=== PATIENT | female | born 1930 | race Caucasian/White ===

== ENCOUNTER → 2018-09-17 | Outpatient (CLI) | payer MEDICARE ==
[2018-09-17 09:58] LABS: HEMATOCRIT 40.4 % (36.0-47.0); HEMOGLOBIN 13.4 g/dl (12.0-15.5); MEAN CORPUSCULAR HEMOGLOBIN 29.4 pg (27.0-33.0); MEAN CORPUSCULAR HGB CONC 33.2 g/dl (32.0-36.5); MEAN CORPUSCULAR VOLUME 88.6 fl (80.0-96.0); PLATELET COUNT, AUTOMATED 233 10^3/uL (150-450); RED BLOOD COUNT 4.56 10^6/uL (4.00-5.40); RED CELL DISTRIBUTION WIDTH 13.5 % (11.5-14.5); WHITE BLOOD COUNT 7.8 10^3/uL (4.0-10.0)
[2018-09-17 10:12] LABS: INR 1.04; PROTHROMBIN TIME 13.7 SECONDS (12.1-14.4)
[2018-09-17 10:17] LABS: ALBUMIN 3.9 GM/DL (3.2-5.2); ALBUMIN/GLOBULIN RATIO 1.39 (1.00-1.93); ALKALINE PHOSPHATASE 86 U/L (45-117); ALT/SGPT 26 U/L (12-78); ANION GAP 6 MEQ/L (8-16); AST/SGOT 30 U/L (7-37); BILIRUBIN,TOTAL 0.3 MG/DL (0.2-1.0); BLOOD UREA NITROGEN 21 MG/DL (7-18); CALCIUM LEVEL 9.6 MG/DL (8.8-10.2); CARBON DIOXIDE LEVEL 33 MEQ/L (21-32); CHLORIDE LEVEL 101 MEQ/L (98-107); GLOMERULAR FILTRATION RATE > 60.0 (>32); GLUCOSE, FASTING 177 MG/DL (70-100); POTASSIUM SERUM 4.3 MEQ/L (3.5-5.1); SODIUM LEVEL 140 MEQ/L (136-145); TOTAL PROTEIN 6.7 GM/DL (6.4-8.2)
[2018-09-17 15:14] LABS: ERYTHROCYTE SEDIMENTATION RATE 10 mm/hr (0-42)
== END ==
LOC: M LAB 09:03
DX: Z01.818 Encounter for other preprocedural examination (principal); R00.1 Bradycardia, unspecified; E11.9 Type 2 diabetes mellitus without complications; K21.9 Gastro-esophageal reflux disease without esophagitis; H40.9 Unspecified glaucoma; Z87.440 Personal history of urinary (tract) infections; M25.551 Pain in right hip
CPT/HCPCS: 71046

== ENCOUNTER 2018-11-10 13:32 | Inpatient (IN) | payer MEDICARE, MEDICAID ==
--- NOTE | 2018-11-03 18:19 | HPE ---
DATE OF SCHEDULED ADMISSION: 11/10/2018 ATTENDING: Dr. Kim CHIEF COMPLAINT: Right hip pain and stiffness. HISTORY: This is a pleasant 88-year-old female patient with progressively worsening right hip pain and stiffness. She was originally scheduled for 10/01/2018, and her surgery was cancelled due to a urinary tract infection. She has since been treated for a urinary tract infection and has an updated clearance done on 10/22/[address] Acevedo's office. She continues to have troubles with normal day-to-day activities. She has troubles getting dressed, weightbearing activities. She continues to have pain with normal day-to-day activities. She has elected for surgery for continued symptoms. She was consented by Dr. Kim for a right total hip arthroplasty. X-rays notable for end-stage degenerative changes of the right hip. CURRENT MEDICATIONS: - amlodipine 5 mg one tablet twice a day - aspirin 81 mg once per day; she will discontinue that 5 days prior to surgery. - brimonidine 0.2% solution, use as directed - Colace 100 mg one tablet once per day - dorzolamide 22.3-6.8 mg, use as directed - duloxetine 60 mg, one tablet once per day - glimepiride 1 mg, half tablet once per day - Glucophage extended release 500 mg, two tablets once per day - irbesartan/hydrochlorothiazide 150/12.5 mg, one tablet once per day - levothyroxine 112 mcg, one tablet once per day - Nexium 40 mg, one tablet once per day - Zantac 150 mg, one tablet at bedtime - rosuvastatin 20 mg, one tablet once per day - tramadol 50 mg as needed for pain - Travatan solution 0.004%, use as directed - trazodone 50 mg, one tablet at bedtime as needed She knows to bring her eye drops with her to the hospital and to discontinue aspirin 5 days prior to surgery. ALLERGIES: MORPHINE, CIPROFLOXACIN, DILAUDID, BACTRIM and GABAPENTIN. MEDICAL CONDITIONS: Include symptomatic osteoarthritis of the right hip, diabetes type 2, gastric reflux disease, elevated triglycerides, colon polyps, glaucoma, elevated lipids, hypertension, hypothyroidism, depression, sciatica, spinal stenosis. PAST SURGICAL HISTORY: Left cataract removed. She has had her tonsils removed, hysterectomy, she has also had a laminectomy in 1995 and posterolateral fusion in 2003. SOCIAL HISTORY: She does not use alcohol. She is a retired gannon. She does not smoke. FAMILY HISTORY: Noncontributory. REVIEW OF SYSTEMS: Denies fever or chills. Denies chest pain, shortness breath or cough. Denies difficulty breathing. Denies abdominal pain. Denies nausea or vomiting. Notes persistent pain in her right hip with activities of daily living and weightbearing activities. She denies recent upper respiratory infection (URI) symptoms. She did have a urinary tract infection in September; it was treated, see the history of the present illness. Physical exam today reveals alert, well-nourished, well-developed female patient. She ambulates with the use of a walker. Exam of the right hip does reveal the skin to be intact. No erythema, edema or ecchymosis. There is decreased internal-external rotation of the right hip. The calf is soft, nontender to palpation. She can sensate light touch in the right lower extremity. Neck is supple without adenopathy or jugular venous distention (JVD). Lungs are clear to auscultation without rales or wheeze. Heart: Regular rate and rhythm. Abdomen: Bowel sounds are present. Her most current vital signs: Height 5 feet even, weight 177 pounds, temperature 96.5, blood pressure 140/80, pulse 78, respirations 16, temperature 98.6, body mass index (BMI) of 26. X-ray: No acute cardiopulmonary disease process noted. EKG: Bradycardia. IMPRESSION: Symptomatic osteoarthritis to right hip. PLAN: She has consented for a right total hip arthroplasty by Dr. Kim. LAUREN
[~2018-11-10] VITALS: Ht 154.9 cm; Wt 60.8 kg
[~2018-11-10 13:32] MED LIST: ACID1CAP5 PO; ACID1TAB PO; AMAR1TAB PO; AMLO5TAB6 PO; ASPI1CHW2 PO; BRIM1OPD OP; CRES20TA PO; DORZ2SOL5 OD; DULO1CAP3 PO; ESOM1CAP5 PO; FENO160T10 PO; HM C500T3 PO; IRBE150T14 PO; IRON27TA2 PO; LR 1,000 ML IV ONE; METF500T4 PO; MULTCAP PO; RANI1TAB6 PO; SENN-23 PO; SIMV40TA2 PO; SYNT100T PO; TRAM50TA2 PO; TRAV04OPD OU; TRAZ-160 PO
[2018-11-10] MEDS ORDERED: TRANEXAMIC ACID 100 MG/ML 10ML VIAL As Ordered ONE (13:47)
[2018-11-10] MEDS ORDERED: EPINEPHrine INJ 1 MG/ML 1ML AMP As Ordered ONE (13:48)
[2018-11-10] MEDS ORDERED: BUPIVACAINE LIPOSOME/PF 1.3% 20ML VIAL (13.3MG/ML)(EXPAREL)(C9290 PER1MG) As Ordered ONE (13:48)
[2018-11-10] MEDS ORDERED: BUPIVACAINE HCL 0.5% 10 ML VIAL As Ordered ONE (13:48)
[2018-11-10] MEDS ORDERED: PERCOCET 5MG/325MG TAB As Ordered ONE (14:30)
[2018-11-10] MEDS ORDERED: ceFAZolin 2 GM/D5W 50 ML IV BAG (J0690 PER 500MG) As Ordered ONE (14:30)
[2018-11-10] MEDS ORDERED: PERCOCET 5MG/325MG TAB PO ONE (14:45)
[2018-11-10] MEDS ORDERED: CelecoXIB (CeleBREX) 100 MG CAP PO ONE (14:45)
[2018-11-10] MEDS ORDERED: BUPIVACAINE/EPIN 0.25% 30 ML VIAL As Ordered ONE (15:09)
[2018-11-10] MEDS: ceFAZolin 1GM INJ (J0690 PER 500MG) As Ordered ONE ×2 (15:45→16:23)
[2018-11-10] MEDS ORDERED: fentaNYL 100 MCG/2 ML INJECTION (J3010) As Ordered ONE (15:56)
[2018-11-10] MEDS ORDERED: MIDAZOLAM INJ 2 MG/2 ML VIAL (J2250) As Ordered ONE (15:56)
[2018-11-10] MEDS ORDERED: BUPIVACAINE/DEXTROSE 0.75% 2 ML AMP As Ordered ONE (15:56)
[2018-11-10] MEDS ORDERED: LIDOCAINE 2% INJ 100 MG/5 ML SDV (FOR ANES.) As Ordered ONE (15:56)
[2018-11-10] MEDS ORDERED: PROPOFOL 200 MG/20 ML VIAL As Ordered ONE (16:06)
[2018-11-10] MEDS ORDERED: ePHEDrine SULFATE 25 MG/5 ML(5MG/ML) SYRINGE As Ordered ONE (16:40)
[2018-11-10] MEDS ORDERED: FLEET ENEMA PR PRN (18:15)
[2018-11-10] MEDS ORDERED: ONDANSETRON 4MG/2ML VIAL (J2405) IV PRN ×2 (18:15→18:30)
[2018-11-10] MEDS ORDERED: D5W/LR 1,000 ML IV SCH (18:15)
[2018-11-10] MEDS: fentaNYL 100 MCG/2 ML INJECTION (J3010) IV PRN ×4 (18:25→18:45)
[2018-11-10] MEDS ORDERED: LR 1,000 ML IV SCH (18:30)
[2018-11-10] MEDS ORDERED: MORPHINE 10 MG/ML 1ML VIAL (J2270) IV PRN (18:30)
[2018-11-10] MEDS: PERCOCET 5MG/325MG TAB PO PRN ×2 (18:40→19:03)
[2018-11-10 19:50] VITALS: BP 143/74
--- NOTE | 2018-11-10 20:18 | CR.PDOC ---
General Date of Consultation: Nov 10, 2018 Consultation PRIMARY CARE PROVIDER: Dr. Acevdeo ATTENDING: Dr. Kim Reason for consultation medical comanagement HISTORY OF PRESENT ILLNESS: This is a 88-year-old female past medical history of ulcer arthritis, GERD, colon polyps, glaucoma, hypertension, hyperthyroidism, depression, spinal st enosis of presents for right hip arthroplasty for symptomatic osteoarthritis. We have been consulted for medical comanagement. Patient denies any chest pain/shortness of breath/palpitations. No nausea vomiting or abdominal pain. Denies any complaints at this time. PAST MEDICAL HISTORY: As per HPI PAST SURGICAL HISTORY: Laminectomy, cataract surgery. SOCIAL HISTORY: Denies tobacco, alcohol use. FAMILY HISTORY: Noncontributory. ALLERGIES: Please see below. REVIEW OF SYSTEMS: HEENT: Denies sore throat/headache CARDIOVASCULAR: Denies chest pain/palpitations RESPIRATORY: Denies shortness of breath/cough GASTROINTESTINAL: denies nausea/vomiting GENITOURINARY: Denies dysuria/urinary urgency. MUSCULOSKELETAL: Denies myalgias/arthralgias NEUROLOGICAL: Denies any focal weakness HOME MEDICATIONS: Please see below. PHYSICAL EXAMINATION: Vitals: (see below) General: No acute distress, laying comfortably in bed. HEENT: Moist mucous membranes. Neck: No JVD or lymphadenopathy Cardiac: RRR, No murmurs Pulm: Clear to auscultation b/l. No wheezing, rhonchi Abd: NT/ND + BS Ext: No edema or cyanosis. Right hip with incision clean and dry. No bleeding at this time. Distal pulses intact. Capillary refill less than 2 seconds. LABORATORY DATA: See below. ASSESSMENT/PLAN: 1. Postop day #0 status post right total hip. Management per orthopedics. Pain management per orthopedic. 2. History of hypertension - - restart amlodipine, Irbesartan. Hold hydrochlorothiazide for now. 3. History of GERD on PPI 4. History of depression will need outpatient follow-up 5. Diabetes mellitus - Hold PO meds. SSI. 6. History of colon polyps will need outpatient follow-up. 7. History of glaucoma will need outpatient follow-up. DVT prophylaxis per orthopedics. Vital Signs/I&O Vital Signs Date Time Temp Pulse Resp B/P (MAP) Pulse Ox O2 Delivery O2 Flow Rate FiO2 11/10/18 19:25 97.6 62 18 156/75 (102) 99 Nasal Cannula 2 Laboratory Data CBC/BMP Laboratory Tests 11/10/18 13:58 Allergies Coded Allergies: Morphine (Verified Adverse Reaction, Severe, HALLUCINATIONS, 10/31/18) Ciprofloxacin (Verified Adverse Reaction, Unknown, 10/31/18) Gabapentin (Verified Adverse Reaction, Unknown, UNSTEADY, 10/31/18) Hydromorphone (Verified Adverse Reaction, Unknown, UNSTEADY, 10/31/18) Pregabalin (Verified Adverse Reaction, Unknown, UNSTEADY, 10/31/18) Sulfamethoxazole w/Trimethoprim (Verified Adverse Reaction, Unknown, GI UPSET, 10/31/18) Home Medications Scheduled (Multivitamins) 1 Cap Cap, 1 CAP PO DAILY, (Reported) (Iron) 27 Mg Tab, 27 MG PO DAILY, (Reported) (Dorzolamide HCl/Timolol M 22.3-6.8 mg/ml) 1 [place], 1 DROP OD BID, #10 (Reported) (Esomeprazole Magnesium) 40 Mg Cap, 0.5 TAB PO DAILY, (Reported) (Irbesartan/Hydrochlorothi 150-12.5 mg) 1 Tab Tab, 1 TAB PO DAILY, (Reported) Acetaminophen (Acetaminophen Extra Stren) 500 Mg Tab, 1 TAB PO Q6H for fever for 15 Days, #60 Amlodipine Besylate (Amlodipine Besylate) 5 Mg Tab, 5 MG PO BID, (Reported) Brimonidine Tartrate 0.1% (Alphagan P) 100 Drop/5 Ml Soln, 1 DROP OP BID for 30 Days, #5 (Reported) Cranberry (Hm Cranberry Ultra Streng) 500 Mg Tab, 500 MG PO DAILY, (Reported) Duloxetine Hcl (Duloxetine HCl) 60 Mg Cap, 60 MG PO DAILY, (Reported) Glimepiride (Amaryl) 1 Mg Tab, 0.5 TAB PO DAILY, (Reported) Lactobacillus (Acidophilus Probiotic For) 1 Tab Tab, 0.5 TAB PO 2XWK, (Reported) TAKES ON MONDAYS AND FRIDAYS Levothyroxine Sodium (Synthroid) 100 Mcg Tab, 100 MCG PO DAILY, (Reported) Metformin Hydrochloride (Metformin HCl ER) 500 Mg Tab, 2 TAB PO QPM, (Reported) Ranitidine HCl (Ranitidine [address]) 150 Mg Tab, 1 TAB PO DAILY, (Reported) Rivaroxaban (Xarelto) 10 Mg Tab, 10 MG PO DAILY for 25 Days, #25 Rosuvastatin Calcium (Crestor) 20 Mg Tab, 20 MG PO DAILY, (Reported) Travoprost (Travatan Z) 50 Drop/2.5 Ml Soln, 1 DROP OU QPM, (Reported) Trazodone HCl (Trazodone HCl) 50 Mg Tab, 50 MG PO QPM, (Reported) Scheduled PRN Tramadol HCl (Tramadol HCl) 50 Mg Tab, 50 MG PO Q6HP PRN for PAIN, (Reported) Tramadol HCl (Ultram) 50 Mg Tab, 1 TAB PO Q4H PRN for pain for 7 Days, #30 ARELI SCOTT MD Nov 10, 2018 20:18
[2018-11-10 20:20] VITALS: BP 120/58
[2018-11-10] MEDS ORDERED: DEXTROSE 50% 50 ML SYRINGE IV PRN (20:45)
[2018-11-10] MEDS ORDERED: GLUCOSE 4 GM CHEW TABLET PO PRN (20:45)
[2018-11-10] MEDS ORDERED: GLUCAGON FOR INJ 1 MG VIAL (J1610) SC PRN (20:45)
[2018-11-10] MEDS: HumaLOG INSULIN (NovoLOG) PER UNIT SC SCH (21:00)
[2018-11-10 21:20] VITALS: BP 123/57
[2018-11-10] MEDS: amLODIPine 5 MG TAB PO SCH (22:14)
[2018-11-10] MEDS: ACETAMINOPHEN TAB 650MG DOSE (2X325MG) PO PRN (22:14)
[2018-11-10 22:20] VITALS: BP 132/59
[2018-11-10] MEDS: LATANOPROST 0.005% OPHTH SOLN 2.5 ML OU SCH (22:27)
[2018-11-10 23:20] VITALS: BP 129/61
[2018-11-11 00:20] VITALS: BP 137/63
[2018-11-11 02:00] VITALS: BP 115/68
[2018-11-11] MEDS: traMADol 50 MG TAB PO PRN (04:37)
[2018-11-11] MEDS: ACETAMINOPHEN TAB 650MG DOSE (2X325MG) PO PRN (04:37)
[2018-11-11] MEDS: LEVOTHYROXINE 100MCG TABLET (0.1MG) PO SCH (05:30)
[2018-11-11] MEDS: PERCOCET 5MG/325MG TAB PO PRN ×4 (05:30→18:58)
[2018-11-11 06:00] VITALS: BP 156/79
[2018-11-11 06:47] LABS: HEMATOCRIT 33.2 % (36.0-47.0); HEMOGLOBIN 11.1 g/dl (12.0-15.5); MEAN CORPUSCULAR HEMOGLOBIN 29.6 pg (27.0-33.0); MEAN CORPUSCULAR HGB CONC 33.4 g/dl (32.0-36.5); MEAN CORPUSCULAR VOLUME 88.5 fl (80.0-96.0); PLATELET COUNT, AUTOMATED 165 10^3/uL (150-450); RED BLOOD COUNT 3.75 10^6/uL (4.00-5.40); WHITE BLOOD COUNT 8.6 10^3/uL (4.0-10.0)
[2018-11-11 08:18] LABS: BLOOD UREA NITROGEN 15 MG/DL (7-18); CALCIUM LEVEL 8.1 MG/DL (8.8-10.2); CARBON DIOXIDE LEVEL 32 MEQ/L (21-32); CHLORIDE LEVEL 100 MEQ/L (98-107); CREATININE FOR GFR 0.73 MG/DL (0.55-1.30); GLOMERULAR FILTRATION RATE > 60.0 (>32); GLUCOSE, FASTING 223 MG/DL (70-100); MAGNESIUM LEVEL 1.4 MG/DL (1.8-2.4); POTASSIUM SERUM 4.3 MEQ/L (3.5-5.1); SODIUM LEVEL 139 MEQ/L (136-145)
[2018-11-11] MEDS: BRIMONIDINE 0.1% OPHTH SOLN 5 ML OU SCH ×2 (08:21→20:45)
[2018-11-11] MEDS: MIRALAX *UNIT DOSE* 17GM PACKET PO SCH (08:21)
[2018-11-11] MEDS: FAMOTIDINE 20 MG TAB PO SCH (08:22)
[2018-11-11] MEDS: METAMUCIL (PSYLLIUM) PACKET PO SCH (08:24)
[2018-11-11] MEDS: DULoxetine 30 MG CAP (CYMBALTA) PO SCH (08:24)
[2018-11-11] MEDS: amLODIPine 5 MG TAB PO SCH ×2 (08:24→21:14)
[2018-11-11] MEDS: ROSUVASTATIN 10 MG TAB (CRESTOR) PO SCH (08:25)
[2018-11-11] MEDS: IRBESARTAN 150 MG TAB PO SCH (08:25)
[2018-11-11] MEDS: MULTIVITAMINS/MINERALS THERAP 1 TAB PO SCH (08:25)
[2018-11-11] MEDS: HumaLOG INSULIN (NovoLOG) PER UNIT SC SCH ×4 (08:26→20:45)
--- NOTE | 2018-11-11 08:45 | REP ---
Right hip: Two views. History: Postop. Findings: AP and cross-table lateral views of the right hip demonstrate the patient is status post right hip arthroplasty. There is a dystrophic calcification adjacent to the proximal femur posterolaterally. Alignment is normal. Electronically Signed by Balwinder Causey MD 11/11/2018 09:06 A
[2018-11-11] MEDS ORDERED: PERC5TAB12 PO (08:49)
[2018-11-11] MEDS ORDERED: ACET-683 PO (08:49)
[2018-11-11] MEDS ORDERED: XARE10TA PO (08:49)
[2018-11-11] MEDS ORDERED: ULTR50TA8 PO (08:49)
[2018-11-11] MEDS: COSOPT OCUMETER PLUS 10ML (DORZOLAMIDE/TIMOLOL) OD SCH ×2 (09:44→20:45)
[2018-11-11 10:00] VITALS: BP 126/58
[2018-11-11 14:00] VITALS: BP 133/53
[2018-11-11] MEDS: RIVAROXABAN 10 MG TAB (XARELTO) PO SCH (18:18)
--- NOTE | 2018-11-11 18:54 | IPN ---
DATE: 11/11/2018 Patient seen and examined. No acute events overnight. Denies any chest pain, pressure, or discomfort. Reported significant right hip pain from surgery. Denies any fevers or chills. VITAL SIGNS: Temperature 98.8, pulse 66, respirations 16, blood pressure 133/53, pulse oximetry 95% on room air. LABORATORY DATA: WBC 8.6, hemoglobin and hematocrit 11.1 over 33.2, platelets 165. Chemistry: Sodium 139, potassium 4.2, chloride 100, bicarbonate 32, BUN 15, creatinine 0.73. PHYSICAL EXAMINATION: GENERAL: Patient alert, comfortable, in no acute distress. HEENT: Normocephalic, atraumatic. PULMONARY: Bilaterally clear. CARDIAC: Regular, S1, S2. ABDOMEN: Soft, nontender. Positive bowel sounds. EXTREMITIES: No clubbing, cyanosis, or edema. Right hip incision clean, dry and intact. Dorsalis pedis (DP), posterior tibial (PT) pulses intact bilaterally. ASSESSMENT AND PLAN: This is an 88-year-old female patient with underlying medical history of gastroesophageal reflux disease (GERD), colonic polyp, glaucoma, hypertension, hypothyroidism, dyslipidemia, depression, spinal stenosis, presented for elective right total hip arthroplasty by Dr. Ian Kim. PROBLEMS: 1. Osteoarthritis. Status post right total hip arthroplasty by Dr. Ian Kim. Perioperative management, deep vein thrombosis (DVT) prophylaxis, bowel regimen, weightbearing status, physical therapy as per orthopedics. Patient on Xarelto for DVT prophylaxis. 2. Hypertension. Continue current medication. Adjust as needed. 3. Gastroesophageal reflux disease. Continue proton pump inhibitor (PPI). 4. Depression. Outpatient followup. 5. Diabetes mellitus. Insulin according to scale. Holding oral medication. 6. History of colon polyp. Outpatient followup. 7. Glaucoma. Outpatient followup. 8. Deep vein thrombosis prophylaxis. As per orthopedics. Patient on Xarelto. 9. Hypothyroidism. Continue Synthroid. DISPOSITION: Pending clinical improvement, physical therapy, as per orthopedic team.
[2018-11-11] MEDS ORDERED: KETOROLAC 30 MG/ML VIAL (J1885) IV ONE (20:30)
[2018-11-11] MEDS: LATANOPROST 0.005% OPHTH SOLN 2.5 ML OU SCH (21:13)
[2018-11-11] MEDS: traZODone 50 MG TAB PO SCH (21:13)
[2018-11-11 22:00] VITALS: BP 126/60
--- NOTE | 2018-11-11 23:58 | RO ---
DATE OF PROCEDURE: 11/10/2018 PREOPERATIVE DIAGNOSIS: Osteoarthritis of the right hip. POSTOPERATIVE DIAGNOSIS: Osteoarthritis of the right hip. PROCEDURE PERFORMED: Right total hip replacement. SURGEON: Dr. Ian Kim CAR JOCKEY: Alisa Piper PA-C ANESTHESIA: Spinal anesthesia. No complications. INDICATIONS: Progressive discomfort in the right hip, radiographic evidence of severe arthritic change of the right hip, progressive loss of activities of daily living secondary to arthritic changes. Consent reviewed in detail, including a sergio discussion of the pathology involved, the procedure proposed, alternatives such as doing nothing, risks including but not limited to pain, failure, infection, bleeding, blood loss, incomplete relief of symptoms, need for additional surgery and other issues. The patient agreed to proceed. COMPONENTS USED: Include a DePuy [place] hip replacement system, size 4 femoral stem, -2 neck length, 36 mm femoral head, 36 mm acetabular liner, 54 mm acetabular shell, apex hole eliminator. DESCRIPTION OF PROCEDURE: Identified in holding area, site and side verified, brought to the operating room, spinal anesthesia accomplished. The patient positioned in the lateral decubitus position for exposure of the right hip for arthroplasty. This was a modified Hardinge approach. Next, once she was sterilely prepped, draped in the usual fashion, the incision was outlined with a marking pen, infiltrated with 0.25% Marcaine with epinephrine, made with a 10 blade knife, developed down through skin and subcuticular tissues to the lateral fascia. The lateral fascia was split using a hot knife followed by release using the Peoples scissors, parallel to fibers, exposing the abductor mechanism. Abductor mechanism was partially avulsed anteriorly. A slit was created in the abductor mechanism at the 2 o'clock position down the femoral neck. Hot knife was utilized to expose the femoral neck and head. Abductor mechanism was tagged and released from the greater trochanter, leaving a cuff tissue for later repair. Vastus lateralis also split. Next, the hip was dislocated. Mr. Piper helped dislocate the hip by rotating the femur while I used the bone hook to help dislocate the hip. Next, the canal was entered with the canal opening reamer, followed by use of the canal finding reamer, followed by the lateralizing reamer, and then we reamed serially through a size 4, which was templated. Next, Mr. Piper placed the template, and then I cut the femoral neck about one-half fingerbreadth from the lesser trochanter. Femoral head was removed. Next, attention turned acetabulum. Labrum was removed using hot knife. Mr. Piper positioned retractors to facilitate this. Transverse acetabular ligament and acetabular fossa was cleared using the hot knife. Next, acetabular hemispherical reamers were utilized, beginning with a size 46 and reaming up through a size 49. We trialed a 49-50, which was the templated size; however, I felt that reaming up through a size 52 would be more appropriate, so we reamed up through the size 51 hemispherical reamers and then trialed with a size 51-52 cup. Next, the 51-52 cup seemed to fit appropriately. We had reamed the floor of the acetabular fossa. Next, irrigation was accomplished. I also instilled approximately 30 mL of Exparel around the hip capsule at this point using a 22 gauge spinal needle in the soft tissues. Next, the acetabulum was placed using the acetabular targeting device, tamped into place, apex hole eliminator was placed after verification that we were on the floor of the acetabulum. Polyethylene liner was installed, tamped into place and verified to be secure. Next, attention was turned the femoral side. Mr. Piper applied the appropriate retractors and then I utilized the juke box mechanic to further open the calcar and then the reamers/broaches through a size 4 broach. Size 4 broach seemed to fit most appropriately; a size 3 broach seated more significantly more further into the femur. However, the size 4 seemed to fit the canal better. I elected to place the size 4. I coupled the size 4 broach with a -2 neck length, which seemed to be the appropriate neck length based on the greater trochanter. Then, we reduced the trial prosthetic, placed the hip through a range of motion, it was stable and the appropriate tension was accomplished. Next, I elected to proceed with the size 4 femoral component with a shorter neck length. Next, this was dislocated, trial components were removed, pulse lavage irrigation was accomplished. TXA solution was instilled into the wounds and allowed to stand for one minute. Non-trial femoral component was then impacted. The femoral head, 36 mm, was then installed non-trial, the hip was reduced, placed through a range of motion, again stable. Next, additional Exparel solution was instilled into the soft tissue superficial area of the wound, as well as the deeper fascial structures, another 40 mL together. Next, Mr. Piper exposed the medius and minimus with retractors, and I reapproximated the capsule medius and minimus tissues. I reapproximated the medius tissue to the greater trochanter cuff of tissue as per Hardinge approach standard approach. I have reapproximated the vastus lateralis with interrupted stitch. Some of the abductor mechanism was reapproximated to the greater trochanter through bony tunnels, others to the cuff of tissue left behind. Next, lateral fascia was then reapproximated with interrupted stitch as well as a running Stratafix stitch, again pulse lavage irrigation utilized. Next, deep tissue and deep dermis was reapproximated with interrupted stitch. Prineo dressing applied. Then, the patient was moved to the hospital bed, leg lengths appreciated to be approximately equal. She was in the supine position and moved to the recovery room in good condition. For further details, please refer to the medical record. Mr. Alisa Piper participated in the entirety of the case in capacity of assistant maintenance manager. Edited 11/13/2018 [facility] [id number] MTDD
[2018-11-12] MEDS: ACETAMINOPHEN TAB 650MG DOSE (2X325MG) PO PRN ×2 (01:32→20:23)
[2018-11-12] MEDS: traMADol 50 MG TAB PO PRN ×3 (01:32→17:07)
[2018-11-12] MEDS: LEVOTHYROXINE 100MCG TABLET (0.1MG) PO SCH (05:27)
[2018-11-12] MEDS: PERCOCET 5MG/325MG TAB PO PRN ×3 (05:28→17:54)
[2018-11-12 06:00] VITALS: BP 111/55
[2018-11-12 06:20] LABS: HEMATOCRIT 30.7 % (36.0-47.0); HEMOGLOBIN 10.2 g/dl (12.0-15.5); MEAN CORPUSCULAR HEMOGLOBIN 29.6 pg (27.0-33.0); MEAN CORPUSCULAR HGB CONC 33.2 g/dl (32.0-36.5); PLATELET COUNT, AUTOMATED 148 10^3/uL (150-450); RED BLOOD COUNT 3.45 10^6/uL (4.00-5.40); WHITE BLOOD COUNT 9.1 10^3/uL (4.0-10.0)
[2018-11-12 06:46] LABS: CALCIUM LEVEL 8.5 MG/DL (8.8-10.2); CREATININE FOR GFR 0.94 MG/DL (0.55-1.30); GLOMERULAR FILTRATION RATE 59.7 (>32); MAGNESIUM LEVEL 1.4 MG/DL (1.8-2.4); POTASSIUM SERUM 3.7 MEQ/L (3.5-5.1)
[2018-11-12] MEDS ORDERED: XARE10TA PO (08:04)
[2018-11-12] MEDS: HumaLOG INSULIN (NovoLOG) PER UNIT SC SCH ×4 (08:53→21:00)
[2018-11-12] MEDS: MAG SULF 1GM/100ML (MAG RUN) 1 GM in APPROPRIATE DILUENT 1 EA IV SCH ×2 (08:53→09:47)
[2018-11-12] MEDS: METAMUCIL (PSYLLIUM) PACKET PO SCH (08:53)
[2018-11-12] MEDS: MIRALAX *UNIT DOSE* 17GM PACKET PO SCH (08:53)
[2018-11-12] MEDS: MULTIVITAMINS/MINERALS THERAP 1 TAB PO SCH (08:54)
[2018-11-12] MEDS: DULoxetine 30 MG CAP (CYMBALTA) PO SCH (08:54)
[2018-11-12] MEDS: ROSUVASTATIN 10 MG TAB (CRESTOR) PO SCH (08:54)
[2018-11-12] MEDS: IRBESARTAN 150 MG TAB PO SCH (08:54)
[2018-11-12] MEDS: amLODIPine 5 MG TAB PO SCH ×2 (08:55→22:14)
[2018-11-12] MEDS: FAMOTIDINE 20 MG TAB PO SCH (08:56)
[2018-11-12] MEDS: COSOPT OCUMETER PLUS 10ML (DORZOLAMIDE/TIMOLOL) OD SCH ×2 (08:56→22:15)
[2018-11-12] MEDS: BRIMONIDINE 0.1% OPHTH SOLN 5 ML OU SCH ×2 (08:56→22:15)
[2018-11-12 14:00] VITALS: BP 111/53
[2018-11-12] MEDS: RIVAROXABAN 10 MG TAB (XARELTO) PO SCH (17:54)
--- NOTE | 2018-11-12 18:55 | IPNPDOC ---
Text Note Date of Service The patient was seen on 11/12/18. NOTE Patient seen and examined. No acute events overnight. Denies any chest pain, pressure, or discomfort. reported right hip pain much improved PHYSICAL EXAMINATION: GENERAL: Patient alert, comfortable, in no acute distress. HEENT: Normocephalic, atraumatic. PULMONARY: Bilaterally clear. CARDIAC: Regular, S1, S2. ABDOMEN: Soft, nontender. Positive bowel sounds. EXTREMITIES: No clubbing, cyanosis, or edema. Right hip incision clean, dry and intact. Dorsalis pedis (DP), posterior tibial (PT) pulses intact bilaterally. ASSESSMENT AND PLAN: This is an 88-year-old female patient with underlying medical history of gastroesophageal reflux disease (GERD), colonic polyp, glaucoma, hypertension, hypothyroidism, dyslipidemia, depression, spinal stenosis, presented for elective right total hip arthroplasty by Dr. Ian Kim. PROBLEMS: 1. Osteoarthritis. Status post right total hip arthroplasty by Dr. Ian Kim. Perioperative management, deep vein thrombosis (DVT) prophylaxis, bowel regimen, weightbearing status, physical therapy as per orthopedics. Patient on Xarelto for DVT prophylaxis. 2. Hypertension. Continue current medication. Adjust as needed. 3. Gastroesophageal reflux disease. Continue proton pump inhibitor (PPI). 4. Depression. Outpatient followup. 5. Diabetes mellitus. Insulin according to scale. Holding oral medication. 6. History of colon polyp. Outpatient followup. 7. Glaucoma. Outpatient followup. 8. Deep vein thrombosis prophylaxis. As per orthopedics. Patient on Xarelto. 9. Hypothyroidism. Continue Synthroid. DISPOSITION: Pending clinical improvement, physical therapy, as per orthopedic team. STR VS,Brentbone, I+O VS, Fishbone, I+O Laboratory Tests 11/12/18 05:48 Red Blood Count 3.45 L, Mean Corpuscular Volume 89.0, Mean Corpuscular Hemoglobin 29.6, Mean Corpuscular Hemoglobin Concent 33.2, Red Cell Distribution Width 13.1, Calcium Level 8.5 L Vital Signs Date Time Temp Pulse Resp B/P (MAP) Pulse Ox O2 Delivery O2 Flow Rate FiO2 11/12/18 18:35 18 Room Air 11/12/18 14:00 98.0 61 111/53 (72) 93 11/11/18 10:20 2.0 I&O- Last 24 Hours up to 6 AM 11/12/18 06:00 Intake Total 620 ml Output Total 120 ml Balance 500 ml SAMMIE CHAPPELL MD Nov 12, 2018 18:55
[2018-11-12] MEDS: traZODone 50 MG TAB PO SCH (22:14)
[2018-11-12] MEDS: LATANOPROST 0.005% OPHTH SOLN 2.5 ML OU SCH (22:15)
[2018-11-13] MEDS: PERCOCET 5MG/325MG TAB PO PRN ×4 (03:00→20:27)
[2018-11-13 06:00] VITALS: BP 118/59
[2018-11-13] MEDS ORDERED: MAGNESIUM CITRATE 300 ML BTL PO ONE (06:15)
[2018-11-13 06:22] LABS: HEMATOCRIT 29.5 % (36.0-47.0); HEMOGLOBIN 9.8 g/dl (12.0-15.5); MEAN CORPUSCULAR HEMOGLOBIN 29.3 pg (27.0-33.0); MEAN CORPUSCULAR HGB CONC 33.2 g/dl (32.0-36.5); MEAN CORPUSCULAR VOLUME 88.1 fl (80.0-96.0); PLATELET COUNT, AUTOMATED 175 10^3/uL (150-450); RED BLOOD COUNT 3.35 10^6/uL (4.00-5.40); WHITE BLOOD COUNT 9.1 10^3/uL (4.0-10.0)
[2018-11-13] MEDS: traMADol 50 MG TAB PO PRN ×2 (06:32→12:32)
[2018-11-13] MEDS: LEVOTHYROXINE 100MCG TABLET (0.1MG) PO SCH (06:33)
[2018-11-13 06:43] LABS: CALCIUM LEVEL 8.5 MG/DL (8.8-10.2); CREATININE FOR GFR 1.12 MG/DL (0.55-1.30); GLOMERULAR FILTRATION RATE 48.8 (>32); MAGNESIUM LEVEL 2.3 MG/DL (1.8-2.4); POTASSIUM SERUM 3.8 MEQ/L (3.5-5.1)
[2018-11-13] MEDS: DULoxetine 30 MG CAP (CYMBALTA) PO SCH (08:26)
[2018-11-13] MEDS: HumaLOG INSULIN (NovoLOG) PER UNIT SC SCH ×4 (08:26→20:33)
[2018-11-13] MEDS: FAMOTIDINE 20 MG TAB PO SCH (08:27)
[2018-11-13] MEDS: MULTIVITAMINS/MINERALS THERAP 1 TAB PO SCH (08:27)
[2018-11-13] MEDS: ROSUVASTATIN 10 MG TAB (CRESTOR) PO SCH (08:27)
[2018-11-13] MEDS: amLODIPine 5 MG TAB PO SCH ×2 (08:27→20:28)
[2018-11-13] MEDS: IRBESARTAN 150 MG TAB PO SCH (08:27)
[2018-11-13] MEDS: METAMUCIL (PSYLLIUM) PACKET PO SCH (08:29)
[2018-11-13] MEDS: MIRALAX *UNIT DOSE* 17GM PACKET PO SCH (08:29)
[2018-11-13] MEDS: COSOPT OCUMETER PLUS 10ML (DORZOLAMIDE/TIMOLOL) OD SCH ×2 (09:00→20:30)
[2018-11-13] MEDS: BRIMONIDINE 0.1% OPHTH SOLN 5 ML OU SCH ×2 (09:00→20:30)
--- NOTE | 2018-11-13 12:16 | IPNPDOC ---
Text Note Date of Service The patient was seen on 11/13/18. NOTE Patient seen and examined. No acute events overnight. Denies any chest pain, pressure, or discomfort. No new complaints PHYSICAL EXAMINATION: GENERAL: Patient alert, comfortable, in no acute distress. HEENT: Normocephalic, atraumatic. PULMONARY: Bilaterally clear. CARDIAC: Regular, S1, S2. ABDOMEN: Soft, nontender. Positive bowel sounds. EXTREMITIES: No clubbing, cyanosis, or edema. Right hip incision clean, dry and intact. Dorsalis pedis (DP), posterior tibial (PT) pulses intact bilaterally. ASSESSMENT AND PLAN: This is an 88-year-old female patient with underlying medical history of gastroesophageal reflux disease (GERD), colonic polyp, glaucoma, hypertension, hypothyroidism, dyslipidemia, depression, spinal stenosis, presented for elective right total hip arthroplasty by Dr. Ian Kim. PROBLEMS: 1. Osteoarthritis. Status post right total hip arthroplasty by Dr. Ian Kim. Perioperative management, deep vein thrombosis (DVT) prophylaxis, bowel regimen, weightbearing status, physical therapy as per orthopedics. Patient on Xarelto for DVT prophylaxis. 2. Hypertension. Continue current medication. Adjust as needed. 3. Gastroesophageal reflux disease. Continue proton pump inhibitor (PPI). 4. Depression. Outpatient followup. 5. Diabetes mellitus. Insulin according to scale. Holding oral medication. 6. History of colon polyp. Outpatient followup. 7. Glaucoma. Outpatient followup. 8. Hypothyroidism. Continue Synthroid. 9. Deep vein thrombosis prophylaxis. As per orthopedics. Patient on Xarelto. DISPOSITION: Pending clinical improvement, physical therapy, as per orthopedic team. STR VS,Fishbone, I+O VS, Fishbone, I+O Laboratory Tests 11/13/18 06:01 Red Blood Count 3.35 L, Mean Corpuscular Volume 88.1, Mean Corpuscular Hemoglobin 29.3, Mean Corpuscular Hemoglobin Concent 33.2, Red Cell Distribution Width 13.2, Calcium Level 8.5 L Vital Signs Date Time Temp Pulse Resp B/P (MAP) Pulse Ox O2 Delivery O2 Flow Rate FiO2 11/13/18 09:28 18 Room Air 11/13/18 08:27 118/59 11/13/18 08:27 62 11/13/18 06:00 97.3 92 11/11/18 10:20 2.0 I&O- Last 24 Hours up to 6 AM 11/13/18 05:59 Intake Total 800 ml Output Total 0 ml Balance 800 ml SAMMIE CHAPPELL MD Nov 13, 2018 12:16
[2018-11-13] MEDS: RIVAROXABAN 10 MG TAB (XARELTO) PO SCH (18:46)
[2018-11-13] MEDS: traZODone 50 MG TAB PO SCH (20:27)
[2018-11-13] MEDS: LATANOPROST 0.005% OPHTH SOLN 2.5 ML OU SCH (20:30)
[2018-11-13 22:00] VITALS: BP 141/80
[2018-11-14] MEDS: traMADol 50 MG TAB PO PRN ×3 (01:58→20:53)
[2018-11-14 06:00] VITALS: BP 128/55
[2018-11-14 06:02] LABS: HEMATOCRIT 29.5 % (36.0-47.0); HEMOGLOBIN 9.6 g/dl (12.0-15.5); MEAN CORPUSCULAR HEMOGLOBIN 29.3 pg (27.0-33.0); MEAN CORPUSCULAR HGB CONC 32.5 g/dl (32.0-36.5); MEAN CORPUSCULAR VOLUME 89.9 fl (80.0-96.0); PLATELET COUNT, AUTOMATED 209 10^3/uL (150-450); RED BLOOD COUNT 3.28 10^6/uL (4.00-5.40); WHITE BLOOD COUNT 5.6 10^3/uL (4.0-10.0)
[2018-11-14] MEDS: LEVOTHYROXINE 100MCG TABLET (0.1MG) PO SCH (06:16)
[2018-11-14] MEDS: PERCOCET 5MG/325MG TAB PO PRN ×2 (06:16→22:53)
[2018-11-14 06:20] LABS: CALCIUM LEVEL 8.1 MG/DL (8.8-10.2); CREATININE FOR GFR 1.14 MG/DL (0.55-1.30); GLOMERULAR FILTRATION RATE 47.8 (>32); MAGNESIUM LEVEL 2.7 MG/DL (1.8-2.4); POTASSIUM SERUM 3.8 MEQ/L (3.5-5.1)
[2018-11-14] MEDS: HumaLOG INSULIN (NovoLOG) PER UNIT SC SCH ×4 (08:12→20:53)
[2018-11-14] MEDS: METAMUCIL (PSYLLIUM) PACKET PO SCH (08:12)
[2018-11-14] MEDS: FAMOTIDINE 20 MG TAB PO SCH (08:12)
[2018-11-14] MEDS: MIRALAX *UNIT DOSE* 17GM PACKET PO SCH (08:12)
[2018-11-14] MEDS: LACTOBACILLUS ACIDOPHILUS CAP (BACID) PO SCH (08:13)
[2018-11-14] MEDS: IRBESARTAN 150 MG TAB PO SCH (08:13)
[2018-11-14] MEDS: amLODIPine 5 MG TAB PO SCH ×2 (08:13→20:52)
[2018-11-14] MEDS: ROSUVASTATIN 10 MG TAB (CRESTOR) PO SCH (08:13)
[2018-11-14] MEDS: MULTIVITAMINS/MINERALS THERAP 1 TAB PO SCH (08:13)
[2018-11-14] MEDS: BRIMONIDINE 0.1% OPHTH SOLN 5 ML OU SCH ×2 (08:14→20:54)
[2018-11-14] MEDS: DULoxetine 30 MG CAP (CYMBALTA) PO SCH (08:14)
[2018-11-14] MEDS: COSOPT OCUMETER PLUS 10ML (DORZOLAMIDE/TIMOLOL) OD SCH ×2 (08:14→20:54)
[2018-11-14] MEDS: RIVAROXABAN 10 MG TAB (XARELTO) PO SCH (18:08)
--- NOTE | 2018-11-14 18:41 | IPNPDOC ---
Text Note Date of Service The patient was seen on 11/14/18. NOTE Patient seen and examined. No acute events overnight. Denies any chest pain, pressure, or discomfort. No new complaints PHYSICAL EXAMINATION: GENERAL: Patient alert, comfortable, in no acute distress. HEENT: Normocephalic, atraumatic. PULMONARY: Bilaterally clear. CARDIAC: Regular, S1, S2. ABDOMEN: Soft, nontender. Positive bowel sounds. EXTREMITIES: No clubbing, cyanosis, or edema. Right hip incision clean, dry and intact. Dorsalis pedis (DP), posterior tibial (PT) pulses intact bilaterally. ASSESSMENT AND PLAN: This is an 88-year-old female patient with underlying medical history of gastroesophageal reflux disease (GERD), colonic polyp, glaucoma, hypertension, hypothyroidism, dyslipidemia, depression, spinal stenosis, presented for elective right total hip arthroplasty by Dr. Ian Kim. PROBLEMS: 1. Osteoarthritis. Status post right total hip arthroplasty by Dr. Ian Kim. Perioperative management, deep vein thrombosis (DVT) prophylaxis, bowel regimen, weightbearing status, physical therapy as per orthopedics. Patient on Xarelto for DVT prophylaxis. 2. Hypertension. Continue current medication. Adjust as needed. 3. Gastroesophageal reflux disease. Continue proton pump inhibitor (PPI). 4. Depression. Outpatient followup. 5. Diabetes mellitus. Insulin according to scale. Holding oral medication. 6. History of colon polyp. Outpatient followup. 7. Glaucoma. Outpatient followup. 8. Hypothyroidism. Continue Synthroid. 9. Deep vein thrombosis prophylaxis. As per orthopedics. Patient on Xarelto. DISPOSITION: as per orthopedic. ALC pending placement VS,Fishbone, I+O VS, Fishbone, I+O Laboratory Tests 11/14/18 05:30 Red Blood Count 3.28 L, Mean Corpuscular Volume 89.9, Mean Corpuscular Hemoglobin 29.3, Mean Corpuscular Hemoglobin Concent 32.5, Red Cell Distribution Width 13.1, Calcium Level 8.1 L Vital Signs Date Time Temp Pulse Resp B/P (MAP) Pulse Ox O2 Delivery O2 Flow Rate FiO2 11/14/18 12:11 18 11/14/18 08:13 128/55 11/14/18 08:13 70 11/14/18 06:46 Room Air 11/14/18 06:00 97.4 96 11/11/18 10:20 2.0 I&O- Last 24 Hours up to 6 AM 11/14/18 06:00 Intake Total 960 ml Output Total 0 ml Balance 960 ml SAMMIE CHAPPELL MD Nov 14, 2018 18:41
[2018-11-14] MEDS: traZODone 50 MG TAB PO SCH (20:52)
[2018-11-14] MEDS: LATANOPROST 0.005% OPHTH SOLN 2.5 ML OU SCH (20:54)
[2018-11-14 22:00] VITALS: BP 131/50
[2018-11-15] MEDS: traMADol 50 MG TAB PO PRN ×2 (04:49→08:58)
[2018-11-15] MEDS: LEVOTHYROXINE 100MCG TABLET (0.1MG) PO SCH (05:13)
[2018-11-15 06:00] VITALS: BP 120/52
[2018-11-15] MEDS: METAMUCIL (PSYLLIUM) PACKET PO SCH (08:57)
[2018-11-15] MEDS: DULoxetine 30 MG CAP (CYMBALTA) PO SCH (08:57)
[2018-11-15] MEDS: amLODIPine 5 MG TAB PO SCH ×2 (08:57→20:44)
[2018-11-15] MEDS: HumaLOG INSULIN (NovoLOG) PER UNIT SC SCH ×4 (08:57→20:45)
[2018-11-15] MEDS: FAMOTIDINE 20 MG TAB PO SCH (08:58)
[2018-11-15] MEDS: MULTIVITAMINS/MINERALS THERAP 1 TAB PO SCH (08:58)
[2018-11-15] MEDS: ROSUVASTATIN 10 MG TAB (CRESTOR) PO SCH (08:59)
[2018-11-15] MEDS: IRBESARTAN 150 MG TAB PO SCH (08:59)
[2018-11-15] MEDS: MIRALAX *UNIT DOSE* 17GM PACKET PO SCH (08:59)
[2018-11-15] MEDS: BRIMONIDINE 0.1% OPHTH SOLN 5 ML OU SCH ×2 (09:00→20:46)
[2018-11-15] MEDS: COSOPT OCUMETER PLUS 10ML (DORZOLAMIDE/TIMOLOL) OD SCH ×2 (09:00→20:46)
[2018-11-15 14:00] VITALS: BP 122/54
[2018-11-15] MEDS: RIVAROXABAN 10 MG TAB (XARELTO) PO SCH (18:12)
[2018-11-15] MEDS: traZODone 50 MG TAB PO SCH (20:44)
[2018-11-15] MEDS: PERCOCET 5MG/325MG TAB PO PRN (20:46)
[2018-11-15] MEDS: LATANOPROST 0.005% OPHTH SOLN 2.5 ML OU SCH (20:46)
[2018-11-16] MEDS: traMADol 50 MG TAB PO PRN ×2 (01:21→17:53)
[2018-11-16 06:00] VITALS: BP 161/69
[2018-11-16] MEDS: LEVOTHYROXINE 100MCG TABLET (0.1MG) PO SCH (06:07)
[2018-11-16 06:26] LABS: HEMATOCRIT 29.7 % (36.0-47.0); HEMOGLOBIN 9.7 g/dl (12.0-15.5); MEAN CORPUSCULAR HEMOGLOBIN 28.9 pg (27.0-33.0); MEAN CORPUSCULAR HGB CONC 32.7 g/dl (32.0-36.5); MEAN CORPUSCULAR VOLUME 88.4 fl (80.0-96.0); PLATELET COUNT, AUTOMATED 241 10^3/uL (150-450); RED BLOOD COUNT 3.36 10^6/uL (4.00-5.40)
[2018-11-16 06:29] LABS: CALCIUM LEVEL 8.6 MG/DL (8.8-10.2); GLOMERULAR FILTRATION RATE 55.6 (>32); MAGNESIUM LEVEL 2.2 MG/DL (1.8-2.4); POTASSIUM SERUM 3.9 MEQ/L (3.5-5.1)
[2018-11-16] MEDS: ROSUVASTATIN 10 MG TAB (CRESTOR) PO SCH (08:21)
[2018-11-16] MEDS: FAMOTIDINE 20 MG TAB PO SCH (08:21)
[2018-11-16] MEDS: DULoxetine 30 MG CAP (CYMBALTA) PO SCH (08:21)
[2018-11-16] MEDS: HumaLOG INSULIN (NovoLOG) PER UNIT SC SCH ×4 (08:21→21:00)
[2018-11-16] MEDS: amLODIPine 5 MG TAB PO SCH ×2 (08:22→21:07)
[2018-11-16] MEDS: MULTIVITAMINS/MINERALS THERAP 1 TAB PO SCH (08:22)
[2018-11-16] MEDS: IRBESARTAN 150 MG TAB PO SCH (08:22)
[2018-11-16] MEDS: METAMUCIL (PSYLLIUM) PACKET PO SCH (08:22)
[2018-11-16] MEDS: COSOPT OCUMETER PLUS 10ML (DORZOLAMIDE/TIMOLOL) OD SCH ×2 (08:23→21:07)
[2018-11-16] MEDS: BRIMONIDINE 0.1% OPHTH SOLN 5 ML OU SCH ×2 (08:23→21:08)
[2018-11-16] MEDS: MIRALAX *UNIT DOSE* 17GM PACKET PO SCH (08:23)
[2018-11-16] MEDS ORDERED: MAGNESIUM CITRATE 300 ML BTL PO ONE (08:45)
[2018-11-16 14:00] VITALS: BP 136/64
[2018-11-16] MEDS: RIVAROXABAN 10 MG TAB (XARELTO) PO SCH (16:59)
[2018-11-16] MEDS: LATANOPROST 0.005% OPHTH SOLN 2.5 ML OU SCH (21:07)
[2018-11-16] MEDS: traZODone 50 MG TAB PO SCH (21:07)
[2018-11-17] MEDS: traMADol 50 MG TAB PO PRN ×4 (00:18→20:13)
[2018-11-17 06:00] VITALS: BP 148/62
[2018-11-17] MEDS: LEVOTHYROXINE 100MCG TABLET (0.1MG) PO SCH (06:20)
[2018-11-17] MEDS: MIRALAX *UNIT DOSE* 17GM PACKET PO SCH (07:59)
[2018-11-17] MEDS: LACTOBACILLUS ACIDOPHILUS CAP (BACID) PO SCH (07:59)
[2018-11-17] MEDS: BRIMONIDINE 0.1% OPHTH SOLN 5 ML OU SCH ×2 (08:00→20:13)
[2018-11-17] MEDS: HumaLOG INSULIN (NovoLOG) PER UNIT SC SCH ×4 (08:00→20:13)
[2018-11-17] MEDS: IRBESARTAN 150 MG TAB PO SCH (08:00)
[2018-11-17] MEDS: ROSUVASTATIN 10 MG TAB (CRESTOR) PO SCH (08:00)
[2018-11-17] MEDS: FAMOTIDINE 20 MG TAB PO SCH (08:00)
[2018-11-17] MEDS: COSOPT OCUMETER PLUS 10ML (DORZOLAMIDE/TIMOLOL) OD SCH ×2 (08:00→20:13)
[2018-11-17] MEDS: DULoxetine 30 MG CAP (CYMBALTA) PO SCH (08:00)
[2018-11-17] MEDS: amLODIPine 5 MG TAB PO SCH ×2 (08:01→20:13)
[2018-11-17] MEDS: MULTIVITAMINS/MINERALS THERAP 1 TAB PO SCH (08:01)
[2018-11-17] MEDS: METAMUCIL (PSYLLIUM) PACKET PO SCH (08:01)
[2018-11-17] MEDS: RIVAROXABAN 10 MG TAB (XARELTO) PO SCH (17:07)
[2018-11-17] MEDS: traZODone 50 MG TAB PO SCH (20:12)
[2018-11-17] MEDS: LATANOPROST 0.005% OPHTH SOLN 2.5 ML OU SCH (20:13)
[2018-11-18 06:00] VITALS: BP 162/73
[2018-11-18] MEDS: LEVOTHYROXINE 100MCG TABLET (0.1MG) PO SCH (06:08)
[2018-11-18] MEDS: traMADol 50 MG TAB PO PRN ×3 (06:09→20:07)
[2018-11-18] MEDS: DULoxetine 30 MG CAP (CYMBALTA) PO SCH (08:05)
[2018-11-18] MEDS: amLODIPine 5 MG TAB PO SCH ×2 (08:05→20:07)
[2018-11-18] MEDS: COSOPT OCUMETER PLUS 10ML (DORZOLAMIDE/TIMOLOL) OD SCH ×2 (08:05→20:07)
[2018-11-18] MEDS: METAMUCIL (PSYLLIUM) PACKET PO SCH (08:05)
[2018-11-18] MEDS: IRBESARTAN 150 MG TAB PO SCH (08:05)
[2018-11-18] MEDS: BRIMONIDINE 0.1% OPHTH SOLN 5 ML OU SCH ×2 (08:05→20:07)
[2018-11-18] MEDS: ROSUVASTATIN 10 MG TAB (CRESTOR) PO SCH (08:05)
[2018-11-18] MEDS: MULTIVITAMINS/MINERALS THERAP 1 TAB PO SCH (08:05)
[2018-11-18] MEDS: HumaLOG INSULIN (NovoLOG) PER UNIT SC SCH (08:05)
[2018-11-18] MEDS: FAMOTIDINE 20 MG TAB PO SCH (08:05)
[2018-11-18] MEDS: MIRALAX *UNIT DOSE* 17GM PACKET PO SCH (08:06)
[2018-11-18 14:00] VITALS: BP 157/77
[2018-11-18] MEDS: RIVAROXABAN 10 MG TAB (XARELTO) PO SCH (17:11)
[2018-11-18] MEDS: LATANOPROST 0.005% OPHTH SOLN 2.5 ML OU SCH (20:07)
[2018-11-18] MEDS: traZODone 50 MG TAB PO SCH (20:07)
[2018-11-19] MEDS: traMADol 50 MG TAB PO PRN ×3 (04:59→21:28)
[2018-11-19] MEDS: LEVOTHYROXINE 100MCG TABLET (0.1MG) PO SCH (05:00)
[2018-11-19 06:00] VITALS: BP 180/70
[2018-11-19 06:34] LABS: HEMATOCRIT 32.5 % (36.0-47.0); HEMOGLOBIN 10.6 g/dl (12.0-15.5); MEAN CORPUSCULAR HEMOGLOBIN 29.3 pg (27.0-33.0); MEAN CORPUSCULAR HGB CONC 32.6 g/dl (32.0-36.5); MEAN CORPUSCULAR VOLUME 89.8 fl (80.0-96.0); PLATELET COUNT, AUTOMATED 333 10^3/uL (150-450); RED BLOOD COUNT 3.62 10^6/uL (4.00-5.40); WHITE BLOOD COUNT 8.6 10^3/uL (4.0-10.0)
[2018-11-19 07:06] LABS: BLOOD UREA NITROGEN 13 MG/DL (7-18); CALCIUM LEVEL 8.8 MG/DL (8.8-10.2); CARBON DIOXIDE LEVEL 30 MEQ/L (21-32); CHLORIDE LEVEL 102 MEQ/L (98-107); CREATININE FOR GFR 0.83 MG/DL (0.55-1.30); GLOMERULAR FILTRATION RATE > 60.0 (>32); GLUCOSE, FASTING 192 MG/DL (70-100); MAGNESIUM LEVEL 1.8 MG/DL (1.8-2.4); POTASSIUM SERUM 4.2 MEQ/L (3.5-5.1); SODIUM LEVEL 139 MEQ/L (136-145)
[2018-11-19] MEDS: FAMOTIDINE 20 MG TAB PO SCH (08:49)
[2018-11-19] MEDS: MULTIVITAMINS/MINERALS THERAP 1 TAB PO SCH (08:49)
[2018-11-19] MEDS: DULoxetine 30 MG CAP (CYMBALTA) PO SCH (08:49)
[2018-11-19] MEDS: METAMUCIL (PSYLLIUM) PACKET PO SCH (08:49)
[2018-11-19] MEDS: ROSUVASTATIN 10 MG TAB (CRESTOR) PO SCH (08:50)
[2018-11-19] MEDS: MIRALAX *UNIT DOSE* 17GM PACKET PO SCH (08:52)
[2018-11-19] MEDS: amLODIPine 5 MG TAB PO SCH ×2 (08:52→21:27)
[2018-11-19] MEDS: IRBESARTAN 150 MG TAB PO SCH (08:53)
[2018-11-19] MEDS: COSOPT OCUMETER PLUS 10ML (DORZOLAMIDE/TIMOLOL) OD SCH ×2 (08:53→21:28)
[2018-11-19] MEDS: BRIMONIDINE 0.1% OPHTH SOLN 5 ML OU SCH ×2 (08:53→21:28)
--- NOTE | 2018-11-19 09:51 | IPN ---
DATE OF SERVICE: 11/18/2018 Chelsi is visiting with family. She feels well. She walked almost the whole length of the hallway. PHYSICAL EXAMINATION: 162/73. Blood pressures have been in the 130-140 range. I think this pressure was taken right after her walk. Pulse is 74. General appearance: Resting comfortably, visiting with family. I did not examine her otherwise. LABORATORIES: I reviewed her blood sugars. They have been almost consistently within normal range with minimal insulin coverage (averaging 4-6 units per day). IMPRESSION: 1. Diabetes. She is only averaging 4-6 units of coverage a day. I will stop her fingersticks before meals and at bedtime and the coverage. Just do them twice a day and call for less than 70 or over 300. 2. The rest of the medical problems are stable.
[2018-11-19] MEDS: RIVAROXABAN 10 MG TAB (XARELTO) PO SCH (17:12)
[2018-11-19] MEDS: traZODone 50 MG TAB PO SCH (21:27)
[2018-11-19] MEDS: LATANOPROST 0.005% OPHTH SOLN 2.5 ML OU SCH (21:28)
[2018-11-19 22:00] VITALS: BP 140/60
[2018-11-20] MEDS: LEVOTHYROXINE 100MCG TABLET (0.1MG) PO SCH (05:19)
[2018-11-20] MEDS: traMADol 50 MG TAB PO PRN ×2 (05:19→17:01)
[2018-11-20 06:00] VITALS: BP 155/69
[2018-11-20] MEDS ORDERED: XARE10TA PO (06:19)
[2018-11-20] MEDS ORDERED: ULTR50TA8 PO (06:19)
[2018-11-20] MEDS: amLODIPine 5 MG TAB PO SCH ×2 (08:06→21:15)
[2018-11-20] MEDS: FAMOTIDINE 20 MG TAB PO SCH (08:06)
[2018-11-20] MEDS: IRBESARTAN 150 MG TAB PO SCH (08:06)
[2018-11-20] MEDS: MULTIVITAMINS/MINERALS THERAP 1 TAB PO SCH (08:07)
[2018-11-20] MEDS: COSOPT OCUMETER PLUS 10ML (DORZOLAMIDE/TIMOLOL) OD SCH ×2 (08:07→21:15)
[2018-11-20] MEDS: DULoxetine 30 MG CAP (CYMBALTA) PO SCH (08:07)
[2018-11-20] MEDS: METAMUCIL (PSYLLIUM) PACKET PO SCH (08:07)
[2018-11-20] MEDS: ROSUVASTATIN 10 MG TAB (CRESTOR) PO SCH (08:07)
[2018-11-20] MEDS: BRIMONIDINE 0.1% OPHTH SOLN 5 ML OU SCH ×2 (08:07→21:15)
[2018-11-20] MEDS: MIRALAX *UNIT DOSE* 17GM PACKET PO SCH (08:07)
[2018-11-20] MEDS: ACETAMINOPHEN TAB 650MG DOSE (2X325MG) PO PRN (09:27)
[2018-11-20] MEDS: RIVAROXABAN 10 MG TAB (XARELTO) PO SCH (17:00)
[2018-11-20] MEDS: LATANOPROST 0.005% OPHTH SOLN 2.5 ML OU SCH (21:15)
[2018-11-20] MEDS: traZODone 50 MG TAB PO SCH (21:15)
[2018-11-21] MEDS: LEVOTHYROXINE 100MCG TABLET (0.1MG) PO SCH (05:37)
[2018-11-21] MEDS: traMADol 50 MG TAB PO PRN ×2 (05:38→16:13)
[2018-11-21 06:00] VITALS: BP 135/76
[2018-11-21 08:47] VITALS: BP 140/80
[2018-11-21] MEDS: amLODIPine 5 MG TAB PO SCH (08:47)
[2018-11-21] MEDS: MIRALAX *UNIT DOSE* 17GM PACKET PO SCH (08:47)
[2018-11-21] MEDS: MULTIVITAMINS/MINERALS THERAP 1 TAB PO SCH (08:47)
[2018-11-21] MEDS: DULoxetine 30 MG CAP (CYMBALTA) PO SCH (08:47)
[2018-11-21] MEDS: METAMUCIL (PSYLLIUM) PACKET PO SCH (08:47)
[2018-11-21] MEDS: FAMOTIDINE 20 MG TAB PO SCH (08:48)
[2018-11-21] MEDS: IRBESARTAN 150 MG TAB PO SCH (08:48)
[2018-11-21] MEDS: ROSUVASTATIN 10 MG TAB (CRESTOR) PO SCH (08:48)
[2018-11-21] MEDS: LACTOBACILLUS ACIDOPHILUS CAP (BACID) PO SCH (08:48)
[2018-11-21] MEDS: COSOPT OCUMETER PLUS 10ML (DORZOLAMIDE/TIMOLOL) OD SCH (08:49)
[2018-11-21] MEDS: BRIMONIDINE 0.1% OPHTH SOLN 5 ML OU SCH (08:49)
[2018-11-21] MEDS: RIVAROXABAN 10 MG TAB (XARELTO) PO SCH (16:13)
--- NOTE | 2018-11-28 14:26 | DSES ---
DATE OF ADMISSION: 11/10/2018 DATE OF DISCHARGE: 11/21/2018 ATTENDING PHYSICIAN: Dr. Ian Kim ADMISSION DIAGNOSIS: Right hip osteoarthritis. OTHER DIAGNOSES: Type 2 diabetes, gastroesophageal reflux disease, elevated triglycerides, colon polyps, glaucoma, hyperlipidemia, hypertension, hypothyroidism, depression, sciatica, and spinal stenosis. DISCHARGE DIAGNOSES: Osteoarthritis of the right hip status post right total hip arthroplasty. OPERATION PERFORMED: Right total hip arthroplasty. HISTORY: This is an 88-year-old female patient with progressively worsening right hip pain and stiffness. She has failed to improve with conservative management. She is admitted for elective hip replacement on the right side. HOSPITAL COURSE: The patient was admitted on the day of surgery and underwent right total hip arthroplasty, which was uneventful. She did well in the postoperative period. Her hospital course was without complications. She was up with physical therapy per their protocol and her pain was controlled. On the day of discharge, she was doing well, weightbearing as tolerated on the right lower extremity and will follow deep vein thrombosis (DVT) prophylaxis protocol. She will resume her preoperative medications and diet, as well as the oral pain medications for pain control. She was given instructions to include, but not limited to wound monitoring and activity limitations. She will followup in our office in 10-14 days for surgical followup. Please refer to the medical record for further details.
== END 2018-11-21 16:20 | disposition home health service (06) | DRG 470 ==
LOC: M OR 13:32 → M MS5PR 19:40
PROVIDERS: ADMIT Orthopaedic Surgery; ATTEND Orthopaedic Surgery
PROC: 0SR90JA Replacement of Right Hip Joint with Synthetic Substitute, Uncemented, Open Approach (ICD-10-PCS; principal; 2018-11-10 16:00)
DX: M16.11 Unilateral primary osteoarthritis, right hip (principal); E11.9 Type 2 diabetes mellitus without complications; K21.9 Gastro-esophageal reflux disease without esophagitis; E78.5 Hyperlipidemia, unspecified; I10 Essential (primary) hypertension; E03.9 Hypothyroidism, unspecified; F32.9 Major depressive disorder, single episode, unspecified; H40.9 Unspecified glaucoma; Z79.899 Other long term (current) drug therapy; Z79.82 Long term (current) use of aspirin; Z88.5 Allergy status to narcotic agent; Z88.8 Allergy status to other drugs, medicaments and biological substances